=== PATIENT | female | born 1945 | race Two or more races ===

== ENCOUNTER → 2016-06-17 | Outpatient (CLI) | payer OTHER, MEDICARE ==
[2016-06-17 09:50] LABS: Urine RBC None Seen /hpf (0 - 4)
[2016-06-17 10:36] LABS: Urine Bilirubin Negative (Negative); Urine Blood Negative /uL (Negative); Urine Color Yellow (Yellow); Urine Glucose Normal (Normal); Urine Ketone Negative (Negative); Urine Nitrite Negative (Negative); Urine Squamous Epithelial Cell MOD /hpf (<5); Urine Urobilinogen Normal (Negative); Urine pH 6.5 (5.0-8.0)
[2016-06-17 10:45] LABS: Albumin 3.6 g/dL (3.4-5.0); BUN/Creatinine Ratio 23.2; Bilirubin, Total 0.5 mg/dL (0.2-1.0); Calcium 9.2 mg/dL (8.5-10.1); Potassium 3.9 mmol/L (3.5-5.1); Total Protein 7.7 g/dL (6.4-8.2)
[2016-06-17 10:50] LABS: Basophils # (auto) 0.1 uL; Basophils % (auto) 0.6 % (0.0-2.0); Eosinophils # (auto) 0.1 uL; Eosinophils % (auto) 1.4 % (0.0-7.0); Hematocrit 42.3 % (36.0-46.0); Hemoglobin 14.1 g/dL (12.2-16.2); Lymphocytes # (auto) 2.2 uL; Lymphocytes % (auto) 28.2 % (10.0-50.0); Mean Corpuscular Hemoglobin 33.2 pg (28.0-32.0); Mean Corpuscular Hgb Conc. 33.3 g/dL (32.0-36.0); Mean Corpuscular Volume 99.6 fL (80.0-100.0); Mean Platelet Volume 8.9 fL (7.4-10.4); Monocytes # (auto) 0.4 uL; Monocytes % (auto) 5.1 % (0.0-12.0); Neutrophils # (auto) 5.2 uL; Neutrophils % (auto) 64.7 % (37.0-80.0); Platelet Count (auto) 285 10^3/uL (140-450); Red Cell Distribution Width 14.8 % (11.6-16.0)
== END | disposition home or self-care (01) ==
LOC: LAB 09:06
PROVIDERS: ATTEND Internal Medicine
DX: E55.9 Vitamin D deficiency, unspecified (principal); E78.2 Mixed hyperlipidemia; I10 Essential (primary) hypertension; E03.9 Hypothyroidism, unspecified
CPT/HCPCS: 36415; 80053; 80061; 81001; 82306; 84443; 85025

== ENCOUNTER → 2017-06-16 | Outpatient (CLI) | payer MEDICARE, OTHER ==
[2017-06-16 10:33] LABS: Basophils # (auto) 0.1 uL; Basophils % (auto) 0.8 % (0.0-2.0); Eosinophils # (auto) 0 uL; Eosinophils % (auto) 0.8 % (0.0-7.0); Hematocrit 41.3 % (36.0-46.0); Hemoglobin 13.9 g/dL (12.2-16.2); Lymphocytes # (auto) 1.6 uL; Lymphocytes % (auto) 25.1 % (10.0-50.0); Mean Corpuscular Hemoglobin 33.3 pg (28.0-32.0); Mean Corpuscular Hgb Conc. 33.7 g/dL (32.0-36.0); Mean Corpuscular Volume 98.6 fL (80.0-100.0); Monocytes # (auto) 0.4 uL; Monocytes % (auto) 6.1 % (0.0-12.0); Neutrophils # (auto) 4.2 uL; Neutrophils % (auto) 67.2 % (37.0-80.0); Platelet Count (auto) 247 10^3/uL (140-450); Red Blood Cells 4.19 10^6/uL (4.0-5.20); Red Cell Distribution Width 13.5 % (11.8-14.3); White Blood Cell 6.2 10^3/uL (4.4-10.8)
[2017-06-16 10:36] LABS: Albumin 3.8 g/dL (3.4-5.0); BUN/Creatinine Ratio 26.1; Bilirubin, Total 0.8 mg/dL (0.2-1.0); Calcium 9.3 mg/dL (8.5-10.1)
== END | disposition home or self-care (01) ==
LOC: LAB 08:40
PROVIDERS: ATTEND Physician Assistant
DX: E11.9 Type 2 diabetes mellitus without complications (principal); E55.9 Vitamin D deficiency, unspecified; E03.9 Hypothyroidism, unspecified; E78.2 Mixed hyperlipidemia; I10 Essential (primary) hypertension
CPT/HCPCS: 36415; 80053; 80061; 82306; 83036; 84443; 85025

== ENCOUNTER → 2017-08-04 | Outpatient (CLI) | payer MEDICARE, OTHER ==
[2017-08-04 08:45] LABS: Basophils # (auto) 0.1 uL; Basophils % (auto) 0.8 % (0.0-2.0); Eosinophils # (auto) 0.1 uL; Eosinophils % (auto) 1.5 % (0.0-7.0); Hematocrit 41.9 % (36.0-46.0); Hemoglobin 14.3 g/dL (12.2-16.2); Lymphocytes # (auto) 2.3 uL; Lymphocytes % (auto) 34.6 % (10.0-50.0); Mean Corpuscular Hemoglobin 33.8 pg (28.0-32.0); Mean Corpuscular Hgb Conc. 34.1 g/dL (32.0-36.0); Mean Corpuscular Volume 99.1 fL (80.0-100.0); Monocytes # (auto) 0.3 uL; Monocytes % (auto) 5.1 % (0.0-12.0); Neutrophils # (auto) 3.9 uL; Platelet Count (auto) 267 10^3/uL (140-450); Red Blood Cells 4.22 10^6/uL (4.0-5.20); Red Cell Distribution Width 14.1 % (11.8-14.3); White Blood Cell 6.8 10^3/uL (4.4-10.8)
[2017-08-04 09:16] LABS: Albumin 3.7 g/dL (3.4-5.0); BUN/Creatinine Ratio 23.2; Bilirubin, Total 0.5 mg/dL (0.2-1.0); Calcium 9.4 mg/dL (8.5-10.1); Potassium 3.6 mmol/L (3.5-5.1); Total Protein 7.9 g/dL (6.4-8.2)
== END | disposition home or self-care (01) ==
LOC: LAB 08:01
PROVIDERS: ATTEND Physician Assistant
DX: I10 Essential (primary) hypertension (principal); E11.9 Type 2 diabetes mellitus without complications; E55.9 Vitamin D deficiency, unspecified; E03.9 Hypothyroidism, unspecified; R68.82 Decreased libido
CPT/HCPCS: 36415; 80053; 80061; 82306; 83036; 84403; 84443; 85025

== ENCOUNTER → 2020-03-27 | Outpatient (CLI) | payer MEDICARE, OTHER ==
[2020-03-27 08:21] LABS: Basophils # (auto) 0.1 10 ^3/uL (0-0.2); Basophils % (auto) 1.3 % (0.0-2.0); Eosinophils # (auto) 0.4 10 ^3/uL (0-0.8); Eosinophils % (auto) 5.3 % (0.0-7.0); Hematocrit 42.6 % (36.0-46.0); Hemoglobin 14.5 g/dL (12.2-16.2); Lymphocytes % (auto) 28.9 % (10.0-50.0); Mean Corpuscular Hemoglobin 33.7 pg (28.0-32.0); Mean Corpuscular Volume 99.1 fL (80.0-100.0); Monocytes # (auto) 0.4 10 ^3/uL (0-1.3); Monocytes % (auto) 5.5 % (0.0-12.0); Neutrophils # (auto) 4.1 10 ^3/uL (1.6-8.6); Platelet Count (auto) 275 10^3/uL (140-450); Red Cell Distribution Width 13.8 % (11.8-14.3); White Blood Cell 6.9 10^3/uL (4.4-10.8)
[2020-03-27 08:45] LABS: Albumin 3.5 g/dL (3.4-5.0); Potassium 3.7 mmol/L (3.5-5.1)
[2020-03-27 08:52] LABS: BUN/Creatinine Ratio 18.5; Bilirubin, Total 0.8 mg/dL (0.2-1.0); Calcium 9.2 mg/dL (8.5-10.1); Total Protein 8.2 g/dL (6.4-8.2)
== END | disposition home or self-care (01) ==
LOC: LAB 08:02
PROVIDERS: ATTEND Physician Assistant
DX: E03.9 Hypothyroidism, unspecified (principal); E55.9 Vitamin D deficiency, unspecified; I10 Essential (primary) hypertension; E78.2 Mixed hyperlipidemia
CPT/HCPCS: 36415; 80053; 80061; 82306; 84443; 85025

== ENCOUNTER → 2020-12-06 | Outpatient (CLI) | payer MEDICARE, OTHER | END | disposition home or self-care (01) | LOC: LAB 08:49 | PROVIDERS: ATTEND Nurse Practitioner Family | DX: E03.9 Hypothyroidism, unspecified (principal) | CPT/HCPCS: 36415; 84443 ==

== ENCOUNTER → 2022-03-18 | Outpatient (CLI) | payer MEDICARE, OTHER ==
[2022-03-18 09:09] LABS: Basophils # (auto) 0.1 10 ^3/uL (0-0.2); Basophils % (auto) 1.2 % (0.0-2.0); Eosinophils # (auto) 0.3 10 ^3/uL (0-0.8); Hematocrit 43.4 % (36.0-46.0); Hemoglobin 14.7 g/dL (12.2-16.2); Lymphocytes % (auto) 31.7 % (10.0-50.0); Mean Corpuscular Hemoglobin 34.2 pg (28.0-32.0); Mean Corpuscular Hgb Conc. 33.9 g/dL (32.0-36.0); Mean Corpuscular Volume 100.9 fL (80.0-100.0); Monocytes # (auto) 0.2 10 ^3/uL (0-1.3); Monocytes % (auto) 3.7 % (0.0-12.0); Neutrophils # (auto) 3.7 10 ^3/uL (1.6-8.6); Neutrophils % (auto) 58.4 % (37.0-80.0); Red Cell Distribution Width 13.8 % (11.8-14.3); White Blood Cell 6.4 10^3/uL (4.4-10.8)
[2022-03-18 09:56] LABS: Albumin 3.8 g/dL (3.4-5.0); Calcium 9.5 mg/dL (8.5-10.1); Potassium 4.2 mmol/L (3.5-5.1)
[2022-03-18 10:17] LABS: BUN/Creatinine Ratio 22.9; Bilirubin, Total 0.8 mg/dL (0.2-1.0); Total Protein 7.8 g/dL (6.4-8.2)
== END | disposition home or self-care (01) ==
LOC: LAB 08:36
PROVIDERS: ATTEND Nurse Practitioner Family
DX: I10 Essential (primary) hypertension (principal); F33.1 Major depressive disorder, recurrent, moderate; E03.9 Hypothyroidism, unspecified
CPT/HCPCS: 36415; 80053; 80061; 84439; 84443; 85025

== ENCOUNTER → 2023-05-01 | Outpatient (CLI) | payer MEDICARE, OTHER ==
[2023-05-01 07:57] LABS: Basophils # (auto) 0.1 10 ^3/uL (0-0.2); Basophils % (auto) 1.2 % (0.0-2.0); Eosinophils # (auto) 0.3 10 ^3/uL (0-0.8); Eosinophils % (auto) 4.6 % (0.0-7.0); Hematocrit 42.2 % (36.0-46.0); Hemoglobin 14.1 g/dL (12.2-16.2); Lymphocytes # (auto) 2.1 10 ^3/uL (0.4-5.4); Mean Corpuscular Hemoglobin 32.9 pg (28.0-32.0); Mean Corpuscular Hgb Conc. 33.3 g/dL (32.0-36.0); Mean Corpuscular Volume 98.9 fL (80.0-100.0); Monocytes # (auto) 0.4 10 ^3/uL (0-1.3); Monocytes % (auto) 5.5 % (0.0-12.0); Neutrophils # (auto) 4.1 10 ^3/uL (1.6-8.6); Neutrophils % (auto) 58.7 % (37.0-80.0); Red Blood Cells 4.27 10^6/uL (4.0-5.20); Red Cell Distribution Width 13.9 % (11.8-14.3); White Blood Cell 6.9 10^3/uL (4.4-10.8)
[2023-05-01 08:32] LABS: Alanine Aminotransferase 22 U/L (7-40); Albumin 4.3 g/dL (3.2-4.8); Alkaline Phosphatase 68 U/L (46-116); Anion Gap 9 (5-15); Aspartate Aminotransferase 27 U/L (13-40); BUN/Creatinine Ratio 17.1 (10.0-20.0); Bilirubin, Total 0.5 mg/dL (0.2-1.0); Blood Urea Nitrogen 12 mg/dL (9-23); Calcium 9.5 mg/dL (8.5-10.1); Carbon Dioxide 28 mmol/L (20-30); Chloride 103 mmol/L (98-107); Cholesterol 178 mg/dL (< 200); Glucose 98 mg/dL (74-106); HDL Cholesterol 80 mg/dL (40-59); LDL Cholesterol 83 mg/dL (< 100); Sodium 140 mmol/L (136-145); Total Protein 6.9 g/dL (5.7-8.2); Triglycerides 79 mg/dL (< 150)
== END | disposition home or self-care (01) ==
LOC: LAB 07:48
PROVIDERS: ATTEND Nurse Practitioner Family
DX: E78.2 Mixed hyperlipidemia (principal); I10 Essential (primary) hypertension; E03.9 Hypothyroidism, unspecified
CPT/HCPCS: 36415; 80053; 80061; 84439; 84443; 85025

== ENCOUNTER 2024-09-06 08:15 | Emergency (ER) | payer MEDICARE, OTHER ==
[~2024-09-06] VITALS: Ht 149.9 cm; Wt 61.7 kg
[2024-09-06 09:18] LABS: Basophils # (auto) 0 10 ^3/uL (0-0.2); Basophils % (auto) 0.9 % (0.0-2.0); Eosinophils # (auto) 0.4 10 ^3/uL (0-0.8); Eosinophils % (auto) 6.7 % (0.0-7.0); Hematocrit 42.4 % (36.0-46.0); Hemoglobin 14.3 g/dL (12.2-16.2); Lymphocytes # (auto) 1.3 10 ^3/uL (0.4-5.4); Lymphocytes % (auto) 23.5 % (10.0-50.0); Mean Corpuscular Hemoglobin 33.6 pg (28.0-32.0); Mean Corpuscular Hgb Conc. 33.8 g/dL (32.0-36.0); Mean Corpuscular Volume 99.2 fL (80.0-100.0); Monocytes # (auto) 0.3 10 ^3/uL (0-1.3); Monocytes % (auto) 4.8 % (0.0-12.0); Neutrophils # (auto) 3.5 10 ^3/uL (1.6-8.6); Neutrophils % (auto) 64.1 % (37.0-80.0); Platelet Count (auto) 226 10^3/uL (140-450); Red Blood Cells 4.27 10^6/uL (4.0-5.20); White Blood Cell 5.4 10^3/uL (4.4-10.8)
[2024-09-06 09:25] LABS: Chloride 106 mmol/L (98-107); Potassium 4.5 mmol/L (3.5-5.1); Sodium 143 mmol/L (136-145)
--- NOTE | 2024-09-06 09:25 | DVH ---
EXAM: CT HEAD WITHOUT CONTRAST HISTORY: Fall, missed step. R/o fracture, bleed COMPARISON: None TECHNIQUE: Noncontrast axial CT images of the head were performed. Sagittal and coronal reformatted i mages were obtained. This CT exam was performed using 1 or more of the following dose reduction techn iques: Automated exposure control, adjustment of the mA and/or kv according to patient size, or the u se of iterative reconstruction techniques. Radiation Dose: CTDI volume is 66.33 mGy. Dose-length product is 2252.68 mGy*cm FINDINGS: No intracranial hemorrhage, mass, midline shift, hydrocephalus, or evidence of acute large vessel inf arct. There is mild mucosal thickening of the right sphenoid sinus. The bilateral mastoid air cells a nd middle ear spaces are clear. No cranial fracture or scalp edema. 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 IMPRESSION: No acute intracranial process.
[2024-09-06 09:26] LABS: Anion Gap 8 (5-15); Calcium 10.3 mg/dL (8.7-10.4); Carbon Dioxide 29 mmol/L (20-31)
[2024-09-06 09:31] LABS: BUN/Creatinine Ratio 16.2 (10.0-20.0); Blood Urea Nitrogen 12 mg/dL (9-23); Glucose 104 mg/dL (74-106)
--- NOTE | 2024-09-06 09:42 | DVH ---
HISTORY: Fall, missed step. R/o fracture TECHNIQUE: Nonenhanced axial images through the facial bones with coronal and sagittal MPR. Radiation Dose Information: CT Dose: CTDI volume is 41 mGy. Dose-length product is 856 mGy*cm COMPARISON: None FINDINGS: Mandible: Unremarkable Maxilla: Unremarkable Zygomatic arches: Unremarkable Nasal bone: Unremarkable Orbits: Unremarkable Sinuses: Clear Facial swellin.7 cm complex fluid density structure overlying the right anterolateral mandible c hest below the maxilla. IMPRESSION: 1. No acute facial fractures. 2. Probable hematoma overlying the right anterolateral mandible just below the right maxilla. Examination is extremely limited secondary to extensive streak and beam hardening artifact from denta l hardware. Radiation optimization: All CT scans at this facility use at least one of these dose optimization shaun hniques: automated exposure control mA and/or kV adjustment per patient size (includes targeted exam s where dose is matched to clinical indication) or iterative reconstruction.
[2024-09-06 09:49] LABS: Urine Bacteria FEW /hpf (None Seen); Urine Blood Negative /uL (Negative); Urine Clarity Turbid (Clear); Urine Color Light-Yellow (Yellow); Urine Mucus FEW (None Seen); Urine Protein, UAD Negative (Negative); Urine Specific Gravity 1.017 (1.001-1.035); Urine Squamous Epithelial Cell FEW /hpf (<5); Urine Urobilinogen Normal (Negative); Urine WBC 1 /HPF (0-5); Urine pH 6.5 (5.0-9.0)
--- NOTE | 2024-09-06 10:53 | ED.PDOC ---
History of Present Illness HPI Comments 79-year-old female presents with a chief complaint of face swelling and hematoma s/p mechanical fall x 3 weeks ago. Patient states that she had a mechanical fall while at a stadium and hit her right orbital rim on the stadium seat. Patient has an approximately 2x2cm round, firm hematoma to her right cheek. Patient denies hitting her head or losing consciousness. 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 Hx Family History Family History: Reviewed,noncontributory to illness Social History Smoker: Non-Smoker Alcohol: Denies ETOH Use Drugs: Denies Drug Use Lives In: Home All Other Systems: Reviewed and Negative ( PER HPI) Physical Exam General Appearance: No Apparent Distress, Normal, Other (RIGHT ORBITAL RIM HEMATOMA, ROUND 2 X 2 CM, FIRM STRUCTURE WITH MILD TTP, NOTICABLE ECCHYMOSIS) HEENT: Head (Normocephalic atraumatic), Normal ENT Inspection, Pharynx Normal, TMs Normal Neck: Full Range of Motion, Non-Tender, Normal, Normal Inspection Respiratory: Chest Non-Tender, Lungs Clear, No Accessory Muscle Use, No Respiratory Distress, Normal Breath Sounds Cardiovascular: No Edema, No JVD, No Murmur, No Gallop, Normal Peripheral Pulses, Regular Rate/Rhythm Breast Exam: Deferred Gastrointestinal: No Organomegaly, Non Tender, No Pulsatile Mass, Normal Bowel Sounds, Soft Genitalia: Deferred Pelvic: Deferred Rectal: Deferred Extremities: No calf tenderness, Normal capillary refill, Normal inspection, Normal range of motion, Non-tender, No pedal edema Musculoskeletal : Apperance: Normal Neurologic: Alert, 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 Was a procedure done?: No Differential Dx Considerations may include: Fractures, closed head injury, subarachnoid hemorrhage X-Ray, Labs, Meds, VS Vital Signs Date Time Temp Pulse Resp B/P (MAP) Pulse Ox O2 Delivery O2 Flow Rate FiO2 09/06/24 13:58 88 18 148/74 (98) 96 09/06/24 11:19 97.7 82 18 148/84 (105) 96 97.7 09/06/24 11:19 82 18 96 Room Air 09/06/24 08:20 97.9 87 20 155/83 (107) 95 97.9 Lab Test 09/06/24 09:11 09/06/24 08:57 Range/Units Urine Color Light-yellow Yellow Urine Clarity Turbid H Clear Urine pH 6.5 5.0-9.0 Urine Specific [place] 1.017 1.001-1.035 Urine Protein Negative Negative Urine Ketones Negative Negative Urine Blood Negative Negative /uL Urine Nitrite Negative Negative Urine Bilirubin Negative Negative Urine Urobilinogen Normal Negative mg/dL Urine Leukocyte Esterase 1+ Negative /uL Urine RBC 1 0 - 4 /hpf Urine Microscopic WBC 1 0-5 /HPF Urine Squamous Epithelial Cells Few <5 /hpf Urine Bacteria Few H None Seen /hpf Urine Mucus Few None Seen Urine Glucose Normal Normal mg/dL White Blood Count 5.4 4.4-10.8 10^3/uL Red Blood Count 4.27 4.0-5.20 10^6/uL Hemoglobin 14.3 12.2-16.2 g/dL Hematocrit 42.4 36.0-46.0 % Mean Corpuscular Volume 99.2 80.0-100.0 fL Mean Corpuscular Hemoglobin 33.6 H 28.0-32.0 pg Mean Corpuscular Hemoglobin Concent 33.8 32.0-36.0 g/dL Red Cell Distribution Width 14.0 11.8-14.3 % Platelet Count 226 140-450 10^3/uL Mean Platelet Volume 8.5 6.9-10.8 fL Neutrophils (%) (Auto) 64.1 37.0-80.0 % Lymphocytes (%) (Auto) 23.5 10.0-50.0 % Monocytes (%) (Auto) 4.8 0.0-12.0 % Eosinophils (%) (Auto) 6.7 0.0-7.0 % Basophils (%) (Auto) 0.9 0.0-2.0 % Neutrophils # (Auto) 3.5 1.6-8.6 10 ^3/uL Lymphocytes # (Auto) 1.3 0.4-5.4 10 ^3/uL Monocytes # (Auto) 0.3 0-1.3 10 ^3/uL Eosinophils # (Auto) 0.4 0-0.8 10 ^3/uL Basophils # (Auto) 0 0-0.2 10 ^3/uL Nucleated Red Blood Cells 0.0 % Sodium Level 143 136-145 mmol/L Potassium Level 4.5 3.5-5.1 mmol/L Chloride Level 106 98-107 mmol/L Carbon Dioxide Level 29 20-31 mmol/L Anion Gap 8 5-15 Blood Urea Nitrogen 12 9-23 mg/dL Creatinine 0.74 0.550-1.02 mg/dL Glomerular Filtration Rate Calc 82 >90 mL/min BUN/Creatinine Ratio 16.2 10.0-20.0 Serum Glucose 104 74-106 mg/dL Calcium Level 10.3 8.7-10.4 mg/dL X-Ray, Labs, Meds, VS Comment 79-year-old female presents with a chief complaint of face swelling and hematoma s/p mechanical fall x 3 weeks ago. Patient arrives alert and oriented, ABC's intact, afebrile, vital signs stable, saturating well in room air Labs were ordered. CBC was ordered to exclude anemia, blood loss, or infection. BMP was ordered to exclude electrolyte abnormalities, renal failure, dehydration, hyperglycemia Urinalysis was ordered to rule out UTI or hematuria. Diagnostic imaging ordered by me and results interpreted by radiology : HEAD AND MAXILLOFACIAL CT SCAN 1. No acute facial fractures. 2. Probable hematoma overlying the right anterolateral mandible just below the right maxilla. 3. No acute intracranial process. Maxillofacial Facial swellin.7 cm complex fluid density structure overlying the right anterolateral mandible chest below the maxilla. IMPRESSION: 1. No acute facial fractures. 2. Probable hematoma overlying the right anterolateral mandible just below the right maxilla. 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 I have evaluated the patient for infection, severe electrolyte abnormalities fractures and closed head injury The patient is > 65 years, presents for mechanical fall Based on my evaluation the patient will be admitted as their safety cannot be assured The patient may also benefit from surgical consultation d/t Facial swellin.7 cm complex fluid density structure overlying the right anterolateral mandible chest below the maxilla. Patient verbalized understanding of the above and is awaiting further evaluation by the admitting service. Hospitalist advised pt stable to dc. no indication for admission at this time. Hospitalist consulted with surgeon for hematoma and was advised outpatient f/u. Results were relayed to the patient and strict return precautions were discussed if symptoms were to worsen. Pt agreed to plan and feels safe going home. Time of 1ST Reevaluation: 10:53 Reevaluation 1ST: Unchanged Patient Education/Counseling: Diagnosis, Treatment, Prognosis Family Education/Counseling: Diagnosis, Treatment, Prognosis SEPSIS Sepsis Screen Date sepsis recognized/suspect: Sep 06, 2024 Time Sepsis recognized/suspect: 819 Recent Procedure: No On Antibiotic Therapy: No Respiratory Rate >20: No Heart Rate >90: No Temp<36 C (96.8 F) or >38.3 C: No SBP <90 or MAP <65 mmHG: No New Acute Mental Status Change: No Is the patient on CPAP, BIPAP,: No Physician Orders Head Without Contrast (09/06/24 08:48) Maxillofacial Without (09/06/24 08:48) Vital Signs Date Time Temp Pulse Resp B/P (MAP) Pulse Ox O2 Delivery O2 Flow Rate FiO2 09/06/24 13:58 88 18 148/74 (98) 96 09/06/24 11:19 97.7 82 18 148/84 (105) 96 97.7 09/06/24 11:19 82 18 96 Room Air 09/06/24 08:20 97.9 87 20 155/83 (107) 95 97.9 Laboratory Tests Test 09/06/24 08:57 White Blood Count 5.4 10^3/uL (4.4-10.8) Departure 1 Departure Time of Disposition: 11:17 Impression: Primary Impression: Fall Qualified Codes: W19.XXXA - Unspecified fall, initial encounter Additional Impressions: Facial swelling Facial hematoma Qualified Codes: S00.83XA - Contusion of other part of head, initial encounter Disposition: 01 HOME / SELF CARE / HOMELESS Condition: Fair Critical Care Note Critical Care Time?: No Stability Stability form required: No Heart Score Heart Score: Heart Score Response (Comments) Value History N/A 0 EKG N/A 0 Age N/A 0 Risk Factors N/A 0 Troponin N/A 0 Total 0 I personally scribed for LOCO GOODE NP ([email or web address]) on 09/06/24 at 10:53. Electronically submitted by Tino Dacosta ([email or web address]). LOCO GOODE NP Sep 06, 2024 10:53
[2024-09-06 11:19] VITALS: TEMP 97.7
[2024-09-06 13:58] VITALS: BP 148/74; PULSE 88; RESP 18; O2SAT 96
== END 2024-09-06 14:24 | disposition admitted as inpatient to this hospital (09) ==
LOC: ER 08:15
DX: S05.11XA Contusion of eyeball and orbital tissues, right eye, initial encounter (principal); R22.0 Localized swelling, mass and lump, head; Z91.041 Radiographic dye allergy status; W18.39XA Other fall on same level, initial encounter; Y93.89 Activity, other specified; Y92.89 Other specified places as the place of occurrence of the external cause; Y99.8 Other external cause status
CPT/HCPCS: 36415; 70450; 70486; 80048; 81001; 85025